=== PATIENT | female | born 1965 | race Hispanic/Latino ===

== ENCOUNTER 2016-05-15 12:51 | Outpatient (CLI) | payer BC ==
--- NOTE | 2016-05-15 15:48 | Ultrasound Report ---
RIGHT UPPER QUADRANT ULTRASOUND: HISTORY: Elevated liver function tests. Technique: Transabdominal ultrasound imaging with Doppler interrogation. FINDINGS: There is a mild degree of sludge in the gallbladder. No shadowing gallstones, wall thickening or surrounding fluid. The common duct is normal in caliber. The liver parenchyma is echogenic consistent with diffuse fatty infiltration. There is no obvious liver mass although the deeper to the liver are obscured. Images of the pancreas, right kidney and aorta are within normal limits. No perihepatic ascites. IMPRESSION: Hepatic steatosis. Sludge in the gallbladder.
== END 2016-05-15 12:52 | disposition home or self-care (01) ==
LOC: US 12:51 → SPVWC 12:51 → US 12:52
PROVIDERS: ATTEND Internal Medicine
DX: R79.89 Other specified abnormal findings of blood chemistry (principal)
CPT/HCPCS: 76705